=== PATIENT | female | born 1945 | race Caucasian/White ===

== ENCOUNTER 2016-06-07 08:45 | Outpatient (CLI) | payer MEDICARE | END 2016-06-07 08:46 | disposition home or self-care (01) | DX: R55 Syncope and collapse (principal); E04.1 Nontoxic single thyroid nodule; I10 Essential (primary) hypertension; R39.15 Urgency of urination ==

== ENCOUNTER 2016-06-27 10:11 | Outpatient (CLI) | payer MEDICARE | END 2016-06-27 10:12 | disposition home or self-care (01) | DX: Z12.31 Encounter for screening mammogram for malignant neoplasm of breast (principal) ==

== ENCOUNTER 2017-05-10 08:00 | Outpatient (CLI) | payer MEDICARE ==
[2017-05-10 12:53] LABS: ALBUMIN 4.2 g/dL (3.2-5.5); ALBUMIN/GLOBULIN RATIO 1.7 (1.0-2.2); ALKALINE PHOSPHATASE 52 IU/L (42-121); ALT ALANINE AMINOTRANSFERASE 15 IU/L (10-60); AST ASPARTATE AMINOTRANSFERASE 19 IU/L (10-42); BILIRUBIN,TOTAL 0.9 mg/dL (0.2-1.0); BUN - BLOOD UREA NITROGEN 14 mg/dL (6-20); CALCIUM 8.9 mg/dL (8.5-10.3); CARBON DIOXIDE - CO2 26 mmol/L (21-32); CHLORIDE 97 mmol/L (101-111); CHOL/HDL RATIO 2.8 (<4.4); CHOLESTEROL 169 mg/dL; CREATININE 0.6 mg/dL (0.4-1.0); GFR - MDRD 98 (>89); GLUCOSE 106 mg/dL (70-100); HDL CHOLESTEROL 61 mg/dL; LDL CHOLESTEROL,CALCULATED 96 mg/dL; LDL/HDL RATIO 1.6 (<4.4); SODIUM 132 mmol/L (135-145); TOTAL PROTEIN 6.7 g/dL (6.7-8.2); VLDL CHOLESTEROL 12 mg/dL
[2017-05-10 12:55] LABS: HB2 TOTAL 14.2 g/dL; HEMOGLOBIN A1C 0.57 g/dL; HEMOGLOBIN A1C % 5.8 % (4.6-6.2)
[2017-05-10 13:03] LABS: THYROID STIMULATING HORMONE 1.8 uIU/mL (0.34-5.60)
[2017-05-10 13:07] LABS: FREE T4 (FREE THYROXINE) 1.04 ng/dL (0.58-1.64)
[2017-05-10 13:08] LABS: BASOPHILS % (AUTO) 0.6 %; EOSINOPHILS # (AUTO) 0.1 10^3/uL (0.0-0.7); EOSINOPHILS % (AUTO) 1.5 %; HGB - HEMOGLOBIN 13.2 g/dL (12.0-16.0); LYMPHOCYTES # (AUTO) 1.1 10^3/uL (1.5-3.5); LYMPHOCYTES % (AUTO) 28.6 %; MEAN CORPUSCULAR HEMOGLOBIN 30.5 pg (27.0-31.0); MEAN CORPUSCULAR HGB CONC 34.6 g/dL (32.0-36.0); MEAN CORPUSCULAR VOLUME 87.9 fL (81.0-99.0); MEAN PLATELET VOLUME 7.4 fL (7.9-10.8); MONOCYTES # (AUTO) 0.3 10^3/uL (0.0-1.0); MONOCYTES % (AUTO) 9.1 %; NEUTROPHILS # (AUTO) 2.3 10^3/uL (1.5-6.6); NEUTROPHILS % (AUTO) 60.2 %; PLT - PLATELET COUNT 262 10^3/uL (130-450); RED BLOOD COUNT 4.34 10^6/uL (4.20-5.40); RED CELL DISTRIBUTION WIDTH 13.1 % (12.0-15.0); WHITE BLOOD COUNT 3.8 x10^3/uL (4.8-10.8)
[2017-05-11 09:15] LABS: HEPATITIS C ANTIBODY NON-REACTIVE (NON-REACTIVE)
== END 2017-05-10 08:01 ==
LOC: LAB.WCP 08:00
PROVIDERS: ATTEND Physician Assistant Medical
DX: R73.9 Hyperglycemia, unspecified (principal); I10 Essential (primary) hypertension; M85.80 Other specified disorders of bone density and structure, unspecified site; E04.1 Nontoxic single thyroid nodule; K21.9 Gastro-esophageal reflux disease without esophagitis; Z11.59 Encounter for screening for other viral diseases
CPT/HCPCS: 36415; 80053; 80061; 82306; 83036; 83721; 83735; 84439; 84443; 84481; 85025; 86803

== ENCOUNTER 2017-05-28 13:09 | Outpatient (CLI) | payer MEDICARE ==
[2017-05-28] MEDS ORDERED: ALBUTEROL NEB 2.5 MG/3 ML INH ONE (15:00)
== END 2017-05-28 13:10 | disposition home or self-care (01) ==
LOC: RT 13:09
PROVIDERS: ATTEND Physician Assistant Medical
DX: R06.00 Dyspnea, unspecified (principal)
CPT/HCPCS: 94060; 94729

== ENCOUNTER 2017-07-13 08:00 | Outpatient (CLI) | payer MEDICARE ==
[2017-07-13 12:57] LABS: CREATININE 0.7 mg/dL (0.4-1.0)
== END 2017-07-13 08:01 ==
LOC: LAB.WCP 08:00
PROVIDERS: ATTEND Physician Assistant Medical
DX: R06.09 Other forms of dyspnea (principal)
CPT/HCPCS: 36415; 80048

== ENCOUNTER 2017-07-27 13:25 | Outpatient (CLI) | payer MEDICARE ==
--- NOTE | 2017-07-27 16:51 | Mammography Report ---
DIGITAL DIAGNOSTIC BILATERAL MAMMOGRAM: 07/27/2017 CLINICAL INDICATION: Localized tenderness right upper outer quadrant. TECHNIQUE: Bilateral CC and MLO views, right true lateral view. Markers were placed at the site of maximal tenderness identified by the patient. The patient could not identify a palpable abnormality on the day of the examination. COMPARISON: 06/27/2016, 05/19/2015, 04/03/2014, 03/04/2014, 02/28/2013, 10/21/2011, 10/26/2010, 10/16/2009. FINDINGS: The breasts again demonstrate scattered fibroglandular densities bilaterally. Coarse, typically benign calcifications are stable. No mammographic abnormality is appreciated in the right upper outer quadrant, at the site indicated by the markers. IMPRESSION: BENIGN FINDINGS. RECOMMENDATION: Routine annual screening unless otherwise clinically indicated. BIRADS category 2 benign findings. STANDARD QUALIFYING STATEMENTS 1. This examination was reviewed with the aid of Computed-Aided Detection (CAD). 2. A negative or benign imaging report should not delay biopsy if clinically suspicious findings are present. Consider surgical consultation if warranted. More than 5% of cancers are not identified by imaging. 3. Dense breasts may obscure an underlying neoplasm. TD: 07/27/2017 15:00
== END 2017-07-27 13:26 | disposition home or self-care (01) ==
LOC: DI 13:25
PROVIDERS: ATTEND Physician Assistant Medical
DX: N63.0 Unspecified lump in unspecified breast (principal)
CPT/HCPCS: 77066

== ENCOUNTER 2018-01-01 10:18 | Outpatient (CLI) | payer MEDICARE ==
[2018-01-01 19:01] LABS: CALCIUM 9.3 mg/dL (8.5-10.3); CREATININE 0.6 mg/dL (0.4-1.0); URIC ACID 4.2 mg/dL (2.6-7.2)
== END 2018-01-01 23:59 | disposition home or self-care (01) ==
LOC: LAB.WCP 10:18
PROVIDERS: ATTEND Physician Assistant Medical
DX: I10 Essential (primary) hypertension (principal); M25.562 Pain in left knee
CPT/HCPCS: 36415; 80048; 84550; 85651

== ENCOUNTER 2018-05-28 08:00 | Outpatient (CLI) | payer MEDICARE ==
[2018-05-28 13:16] LABS: BASOPHILS % (AUTO) 0.7 %; EOSINOPHILS # (AUTO) 0.1 10^3/uL (0.0-0.7); EOSINOPHILS % (AUTO) 1.3 %; HGB - HEMOGLOBIN 13.4 g/dL (12.0-16.0); LYMPHOCYTES # (AUTO) 1.1 10^3/uL (1.5-3.5); LYMPHOCYTES % (AUTO) 21.5 %; MEAN CORPUSCULAR HEMOGLOBIN 30.9 pg (27.0-31.0); MEAN CORPUSCULAR HGB CONC 35.3 g/dL (32.0-36.0); MEAN CORPUSCULAR VOLUME 87.6 fL (81.0-99.0); MEAN PLATELET VOLUME 7.7 fL (7.9-10.8); MONOCYTES # (AUTO) 0.3 10^3/uL (0.0-1.0); MONOCYTES % (AUTO) 6.7 %; NEUTROPHILS # (AUTO) 3.5 10^3/uL (1.5-6.6); NEUTROPHILS % (AUTO) 69.8 %; PLT - PLATELET COUNT 321 10^3/uL (130-450); RED BLOOD COUNT 4.32 10^6/uL (4.20-5.40)
[2018-05-28 13:25] LABS: ALBUMIN 4.4 g/dL (3.2-5.5); ALBUMIN/GLOBULIN RATIO 1.4 (1.0-2.2); ALKALINE PHOSPHATASE 60 IU/L (42-121); ALT ALANINE AMINOTRANSFERASE 16 IU/L (10-60); AST ASPARTATE AMINOTRANSFERASE 21 IU/L (10-42); BILIRUBIN,TOTAL 0.9 mg/dL (0.2-1.0); BUN - BLOOD UREA NITROGEN 16 mg/dL (6-20); CALCIUM 9.6 mg/dL (8.5-10.3); CARBON DIOXIDE - CO2 28 mmol/L (21-32); CHLORIDE 92 mmol/L (101-111); CHOL/HDL RATIO 2.7 (<4.4); CHOLESTEROL 178 mg/dL; CREATININE 0.7 mg/dL (0.4-1.0); GFR - MDRD 82 (>89); GLUCOSE 110 mg/dL (70-100); HDL CHOLESTEROL 67 mg/dL; LDL CHOLESTEROL,CALCULATED 96 mg/dL; LDL/HDL RATIO 1.4 (<4.4); SODIUM 130 mmol/L (135-145); TOTAL PROTEIN 7.5 g/dL (6.7-8.2); VLDL CHOLESTEROL 15 mg/dL
[2018-05-28 13:34] LABS: THYROID STIMULATING HORMONE 1.6 uIU/mL (0.34-5.60)
[2018-05-28 13:35] LABS: FREE T4 (FREE THYROXINE) 0.98 ng/dL (0.58-1.64)
[2018-05-28 13:45] LABS: HB2 TOTAL 14.4 g/dL; HEMOGLOBIN A1C 0.59 g/dL; HEMOGLOBIN A1C % 5.9 % (4.6-6.2)
== END 2018-05-28 23:59 | disposition home or self-care (01) ==
LOC: LAB.WCP 08:00
PROVIDERS: ATTEND Physician Assistant Medical
DX: R73.9 Hyperglycemia, unspecified (principal); I10 Essential (primary) hypertension; R20.9 Unspecified disturbances of skin sensation; E04.1 Nontoxic single thyroid nodule; K21.9 Gastro-esophageal reflux disease without esophagitis
CPT/HCPCS: 36415; 80053; 80061; 82607; 83036; 83721; 84439; 84443; 84481; 85025

== ENCOUNTER 2018-05-28 11:17 | Outpatient (CLI) | payer MEDICARE ==
--- NOTE | 2018-05-28 16:31 | XRAY Report ---
Reason: TMJ DERANGEMENT Procedure Date: 05/28/2018 Accession Number: [id number] / [id number] Procedure: XR - Mandible Bilat CPT Code: FULL RESULT: EXAM: MANDIBLE RADIOGRAPHY EXAM DATE: 05/28/2018 12:10 PM. HISTORY: TMJ derangement. COMPARISONS: None. TECHNIQUE: 4 views. FINDINGS: Bones: Normal. No fractures or bone lesions. Temporomandibular Joints: Normal. The temporomandibular joints are normally located and symmetric. Sinuses: Normal. No opacities or fluid levels. Other: Normal. No soft tissue swelling. IMPRESSION: No specific plain film abnormalities demonstrated. If there is persistent clinical concern of internal derangement, consider TMJ MRI. RADIA
== END 2018-05-28 11:18 | disposition home or self-care (01) ==
LOC: DI 11:17
PROVIDERS: ATTEND Physician Assistant Medical
DX: M26.69 Other specified disorders of temporomandibular joint (principal); R73.9 Hyperglycemia, unspecified; I10 Essential (primary) hypertension; R20.9 Unspecified disturbances of skin sensation; E04.1 Nontoxic single thyroid nodule
CPT/HCPCS: 36415; 70110; 80053; 80061; 82607; 83036; 83721; 84439; 84443; 84481; 85025

== ENCOUNTER 2018-11-19 10:07 | Outpatient (CLI) | payer MEDICARE ==
[2018-11-19 13:57] LABS: ALBUMIN 4.2 g/dL (3.2-5.5); ALBUMIN/GLOBULIN RATIO 1.4 (1.0-2.2); BILIRUBIN,TOTAL 0.9 mg/dL (0.2-1.0); CALCIUM 9.2 mg/dL (8.5-10.3); CREATININE 0.6 mg/dL (0.4-1.0); TOTAL PROTEIN 7.2 g/dL (6.7-8.2)
== END 2018-11-19 23:59 | disposition home or self-care (01) ==
LOC: LAB.WCP 10:07
PROVIDERS: ATTEND Physician Assistant Medical
DX: R60.9 Edema, unspecified (principal)
CPT/HCPCS: 36415; 80053

== ENCOUNTER 2018-12-20 08:57 | Outpatient (CLI) | payer MEDICARE ==
--- NOTE | 2018-12-20 10:52 | Mammography Report ---
Reason: MASTALGIA Procedure Date: 12/20/2018 Accession Number: [id number] / [id number] Procedure: FELIPA - Diagnostic Dig Bilat CPT Code: FULL RESULT: EXAM: Diagnostic Dig Bilat DATE: 12/20/2018 9:34 AM CLINICAL HISTORY: Diffuse lateral right breast pain TECHNIQUE: (B) - Bilateral CC and MLO views were obtained. COMPARISON: 07/27/2017, 06/27/2016, 05/19/2015, 04/03/2014, 03/04/2014, 02/28/2013, 10/21/2011 and 10/26/2010 PARENCHYMAL PATTERN: (A) - The breasts demonstrate scattered fibroglandular densities bilaterally. FINDINGS: No significant interval change. There are no suspicious masses, calcifications, or areas of distortion. IMPRESSION: Negative examination. BI-RADS category 1. RECOMMENDATION: (ANNUAL) - Recommend routine annual screening mammography. BI-RADS CATEGORY: (1) - Negative. STANDARD QUALIFYING STATEMENTS: 1. This examination was not reviewed with the aid of Computer-Aided Detection (CAD). 2. A negative or benign imaging report should not preclude biopsy if clinically suspicious findings are present. 3. Dense breasts may obscure an underlying neoplasm. 4. This examination was reviewed with the aid of 3D breast imaging (tomosynthesis).
== END 2018-12-20 08:58 | disposition home or self-care (01) ==
LOC: DI 08:57
PROVIDERS: ATTEND Physician Assistant Medical
DX: N64.4 Mastodynia (principal)
CPT/HCPCS: 77066

== ENCOUNTER 2019-04-19 09:38 | Outpatient (CLI) | payer MEDICARE ==
[2019-04-19 13:25] LABS: BASOPHILS % (AUTO) 0.6 %; EOSINOPHILS % (AUTO) 0.6 %; HGB - HEMOGLOBIN 12.6 g/dL (12.0-16.0); LYMPHOCYTES # (AUTO) 0.8 10^3/uL (1.5-3.5); LYMPHOCYTES % (AUTO) 23.6 %; MEAN CORPUSCULAR HEMOGLOBIN 30.9 pg (27.0-31.0); MEAN CORPUSCULAR HGB CONC 35.3 g/dL (32.0-36.0); MEAN CORPUSCULAR VOLUME 87.5 fL (81.0-99.0); MEAN PLATELET VOLUME 9.2 fL (7.9-10.8); MONOCYTES # (AUTO) 0.3 10^3/uL (0.0-1.0); MONOCYTES % (AUTO) 9.7 %; NEUTROPHILS # (AUTO) 2.3 10^3/uL (1.5-6.6); NEUTROPHILS % (AUTO) 65.2 %; PLT - PLATELET COUNT 297 10^3/uL (130-450); RED BLOOD COUNT 4.08 10^6/uL (4.20-5.40); RED CELL DISTRIBUTION WIDTH 12.3 % (12.0-15.0); WHITE BLOOD COUNT 3.5 x10^3/uL (4.8-10.8)
[2019-04-19 13:42] LABS: ALBUMIN 4.2 g/dL (3.2-5.5); ALBUMIN/GLOBULIN RATIO 1.8 (1.0-2.2); ALKALINE PHOSPHATASE 49 IU/L (42-121); ALT ALANINE AMINOTRANSFERASE 17 IU/L (10-60); AST ASPARTATE AMINOTRANSFERASE 20 IU/L (10-42); BILIRUBIN,TOTAL 1.1 mg/dL (0.2-1.0); BUN - BLOOD UREA NITROGEN 15 mg/dL (6-20); CARBON DIOXIDE - CO2 29 mmol/L (21-32); CHLORIDE 90 mmol/L (101-111); CHOL/HDL RATIO 2.4 (<4.4); CHOLESTEROL 159 mg/dL; CREATININE 0.7 mg/dL (0.4-1.0); GFR - MDRD 81 (>89); GLUCOSE 109 mg/dL (70-100); HDL CHOLESTEROL 65 mg/dL; LDL CHOLESTEROL,CALCULATED 84 mg/dL; LDL/HDL RATIO 1.3 (<4.4); SODIUM 129 mmol/L (135-145); TOTAL PROTEIN 6.6 g/dL (6.7-8.2); VLDL CHOLESTEROL 10 mg/dL
[2019-04-19 13:54] LABS: HB2 TOTAL 13.2 g/dL; HEMOGLOBIN A1C 0.55 g/dL
[2019-04-19 14:07] LABS: THYROID STIMULATING HORMONE 1.47 uIU/mL (0.34-5.60)
[2019-04-19 14:09] LABS: FREE T4 (FREE THYROXINE) 1.1 ng/dL (0.58-1.64)
== END 2019-04-19 23:59 | disposition home or self-care (01) ==
LOC: LAB.WCP 09:38
PROVIDERS: ATTEND Physician Assistant Medical
DX: I10 Essential (primary) hypertension (principal); R73.9 Hyperglycemia, unspecified; E04.1 Nontoxic single thyroid nodule
CPT/HCPCS: 36415; 80053; 80061; 83036; 83721; 84439; 84443; 84481; 85025

== ENCOUNTER 2019-05-10 09:58 | Outpatient (CLI) | payer MEDICARE ==
--- NOTE | 2019-05-10 16:45 | DEXA Report ---
Reason: OSTEOPENIA Procedure Date: 05/10/2019 Accession Number: [id number] / [id number] Procedure: DEX - Dexa Spine and/or Hip CPT Code: Final Report FULL RESULT: EXAM: Dexa Spine and/or Hip DATE: 05/10/2019 10:38 AM CLINICAL HISTORY: OSTEOPENIA TECHNIQUE: Dual energy x-ray absorptiometry (DXA) was performed on a [employer] System. Regions measured are the AP Spine, femoral neck, and if needed forearm. COMPARISON: None. In accordance with the International Society for Clinical Densitometry (ISCD) guidelines, data from previous exams may be reanalyzed using current recommendations and techniques. This is done to allow a more accurate basis for comparison with the current study. FINDINGS: The data for the lumbar spine is as follows: BMD (g/cm/cm) T-SCORE Z-SCORE REGION L1 1.042 -0.7 0.1 L2 1.066 -1.1 -0.3 L3 1.172 -0.2 0.6 L4 0.970 -1.9 -1.1 TOTAL 1.058 -1.0 -0.2 NOTE: All evaluable vertebrae are used for classification The data for the hip is as follows: BMD (g/cm/cm) T-SCORE Z-SCORE REGION Neck 0.741 -2.1 -0.8 TOTAL 0.906 -0.8 0.3 NOTE: The femoral neck or total proximal femur, whichever is lowest, is used for classification. IMPRESSION: THE WHO CLASSIFICATION BASED ON THE INTERNATIONAL REFERENCE STANDARD IS OSTEOPENIA. THE FRACTURE RISK IS INCREASED. RECOMMENDATION: Patients with diagnosis of osteoporosis or osteopenia should have regular bone mineral density assessment. For those eligible for Medicare, routine testing is allowed once every 2 years. Testing frequency can be increased for patients who have rapidly progressing disease or for those who are receiving medical therapy to restore bone mass. COMMENT: World Health Organization (WHO) definitions for osteoporosis and osteopenia: NORMAL BMD: T-score at -1.0 or higher, fracture risk is low OSTEOPENIA BMD: T-score between -1.0 and -2.5, fracture risk is increased. OSTEOPOROSIS BMD: T-score at -2.5 or lower, fracture risk is high. National Osteoporosis Foundation recommends: 1. Obtain adequate dietary calcium (at least 1200 mg per day) and vitamin D (400-800 international units per day). 2. Participate, as appropriate, in regular weightbearing and muscle-strengthening exercise. 3. Avoid tobacco use and reduce alcohol and caffeine intake. 4. For more detailed information see the website at www.NOF.org.
== END 2019-05-10 09:59 | disposition home or self-care (01) ==
LOC: DI 09:58
PROVIDERS: ATTEND Physician Assistant Medical
DX: M85.89 Other specified disorders of bone density and structure, multiple sites (principal)
CPT/HCPCS: 77080

== ENCOUNTER 2019-10-12 13:17 | Emergency (ER) | payer MEDICARE ==
[2019-10-12] MEDS ORDERED: SODIUM CHLORIDE 0.9% 1,000 ML IV STA (13:34)
--- NOTE | 2019-10-12 13:40 | ED Physician Documentation ---
History of Present Illness - Stated complaint Stated Complaint: GENERAL MALAISE - Chief complaint Chief Complaint: Cardiac - History obtained from History obtained from: Patient, Family - History of Present Illness Timing: Today Pain level max: 0 Pain level now: 0 - Additonal information Additional information: 74-year-old female was at the [place] [employer] [place] today when she felt lightheaded dizzy and near syncopal. Nothing made it better or worse. She states that this has occurred in the past as well. No chest pain. No shortness of breath. No vomiting. No diarrhea. No abdominal pain. No urinary symptoms. No fall. No head injury. No neck or back pain. Review of Systems Ten Systems: 10 systems reviewed and negative Constitutional: denies: Fever, Chills Ears: denies: Ear pain Nose: denies: Rhinorrhea / runny nose, Congestion Respiratory: denies: Cough GI: denies: Nausea, Vomiting, Diarrhea PD PAST MEDICAL HISTORY - Past Medical History Cardiovascular: Hypertension Endocrine/Autoimmune: Type 2 diabetes Musculoskeletal: Osteoarthritis - Present Medications Home Medications: Ambulatory Orders Medication Instructions Recorded Confirmed Hydrochlorothiazide 25 mg PO DAILY 09/10/12 10/12/19 Losartan [Cozaar] 100 mg PO DAILY 09/10/12 10/12/19 - Allergies Allergies/Adverse Reactions: Allergies Allergy/AdvReac Type Severity Reaction Status Date / Time niacin Allergy Unknown unknown Verified 10/12/19 14:13 SOFIE Inhibitors Allergy Unknown Verified 10/12/19 15:59 aminobenzoic acid Allergy Unknown Verified 10/12/19 15:59 Beta-Blockers Allergy Unknown Verified 10/12/19 15:59 (Beta-Adrenergic Bloc peanut Allergy Unknown Verified 10/12/19 14:13 Penicillins Allergy Unknown Verified 10/12/19 15:59 Quinolones Allergy Unknown Verified 10/12/19 15:59 PD ED PE NORMAL - Vitals Vital signs reviewed: Yes - General General: Alert and oriented X 3, No acute distress, Well developed/nourished - HEENT HEENT: PERRL, Moist mucous membranes, Pharynx benign - Neck Neck: Supple, no meningeal sign - Cardiac Cardiac: RRR - Respiratory Respiratory: No respiratory distress, Clear bilaterally - Abdomen Abdomen: Soft, Non tender, Non distended - Derm Derm: Warm and dry - Extremities Extremities: No calf tenderness / cord, Other (1+ bilateral lower extremity pitting edema) - Neuro Neuro: Alert and oriented X 3, crester 2-12 intact, No motor deficit, No sensory deficit, Normal speech Eye Opening: Spontaneous Motor: Obeys Commands Verbal: Oriented GCS Score: 15 Results - Vitals Vitals: Vital Signs - 24 hr 10/12/19 10/12/19 10/12/19 13:39 14:00 15:00 Temperature 36.8 C Heart Rate 81 67 70 Respiratory 17 17 17 Rate Blood Pressure 134/68 H 148/48 H O2 Saturation 99 100 100 10/12/19 15:41 Temperature Heart Rate 67 Respiratory 20 Rate Blood Pressure 99/85 H O2 Saturation 96 Oxygen O2 Source Room air - EKG (time done) 1336 Rate: Rate (enter#) (66) Rhythm: NSR [place]: Normal Intervals: Normal ID QRS: Normal Ischemia: Normal ST segments - Labs Labs: Laboratory Tests 10/12/19 10/12/19 10/12/19 14:10 14:10 14:10 WBC 5.5 RBC 4.10 L Hgb 12.7 Hct 35.7 L MCV 87.1 MCH 31.0 MCHC 35.6 RDW 12.3 Plt Count 308 MPV 8.8 Neut # (Auto) 4.3 Lymph # (Auto) 0.7 L [place] # (Auto) 0.4 Eos # (Auto) 0.0 Baso # (Auto) 0.0 Absolute Nucleated RBC 0.00 Nucleated RBC % 0.0 Sodium 130 L Potassium 3.3 L Chloride 92 L Carbon Dioxide 23 Anion Gap 15.0 H BUN 15 Creatinine 0.9 Estimated GFR (MDRD) 61 L Glucose 174 H Calcium 9.2 Total Bilirubin 1.0 AST 18 ALT 16 Alkaline Phosphatase 71 Troponin I High Sens 4.4 Total Protein 6.6 L Albumin 4.1 Globulin 2.5 Albumin/Globulin Ratio 1.6 Lipase 34 Urine Color Urine Clarity Urine pH Ur Specific [place] Urine Protein Urine Glucose (UA) Urine Ketones Urine Occult Blood Urine Nitrite Urine Bilirubin Urine Urobilinogen Ur Leukocyte Esterase Ur Microscopic Review Urine Culture Comments 10/12/19 15:15 WBC RBC Hgb Hct MCV MCH MCHC RDW Plt Count MPV Neut # (Auto) Lymph # (Auto) [place] # (Auto) Eos # (Auto) Baso # (Auto) Absolute Nucleated RBC Nucleated RBC % Sodium Potassium Chloride Carbon Dioxide Anion Gap BUN Creatinine Estimated GFR (MDRD) Glucose Calcium Total Bilirubin AST ALT Alkaline Phosphatase Troponin I High Sens Total Protein Albumin Globulin Albumin/Globulin Ratio Lipase Urine Color YELLOW Urine Clarity CLEAR Urine pH 8.0 H Ur Specific [place] 1.015 Urine Protein NEGATIVE Urine Glucose (UA) NEGATIVE Urine Ketones NEGATIVE Urine Occult Blood NEGATIVE Urine Nitrite NEGATIVE Urine Bilirubin NEGATIVE Urine Urobilinogen 0.2 (NORMAL) Ur Leukocyte Esterase NEGATIVE Ur Microscopic Review NOT INDICATED Urine Culture Comments NOT INDICATED - Rads (name of study) cxr Radiology: Prelim report reviewed, EMP read contemporaneously, See rad report (no acute disease) PD MEDICAL DECISION MAKING - ED course Complexity details: reviewed results, re-evaluated patient, considered differential (No ST elevation VT, no aortic dissection, no PE, no tension pneumothorax, no aortic aneurysm), d/w patient, d/w family ED course: No arrhythmias on telemetry. No significant lab abnormalities. Feels better after IV fluids. Likely dehydration combined with sun exposure and heat. We will have the patient follow-up with her doctor for further care. She is on hydrochlorothiazide for peripheral edema as well as blood pressure. This is likely contributing as well. We will have her discuss this with her doctor. Patient counseled regarding signs and symptoms for which I believe and urgent re-evaluation would be necessary. Patient with good understanding of and agreement to plan and is comfortable going home at this time This document was made in part using voice recognition software. While efforts are made to proofread this document, sound alike and grammatical errors may occur. Departure - Departure Disposition: 01 Home, Self Care Clinical Impression: Near syncope, Dehydration Condition: Good Instructions: ED Dehydration, ED Near Syncope Vasovagal Follow-Up: Amaris Briseno PA-C [Primary Care Provider] - Within 1 week Comments: Follow-up with your doctor for further care. There are no significant changes to your labs from your baseline. Continue your current medications, return if you worsen. Discharge Date/Time: 10/12/19 16:00
--- NOTE | 2019-10-12 13:55 | XRAY Report ---
PROCEDURE: Chest 1 View X-Ray INDICATIONS: Chest Pain TECHNIQUE: One view of the chest was acquired. COMPARISON: 08/07/2015 FINDINGS: Surgical changes and devices: None. Lungs and pleura: No pleural effusions or pneumothorax. Lungs are clear. Mediastinum: The aorta is prominent and tortuous. The cardiac contours are within normal limits. Bones and chest wall: No suspicious bony lesions. Age-appropriate degenerative changes are seen. Overlying soft tissues appear unremarkable. IMPRESSION: Unremarkable portable chest for age. Reviewed by: Ceasar Miranda MD on 10/12/2019 12:54 PM AKDT Approved by: Ceasar Miranda MD on 10/12/2019 12:54 PM AKDT Station ID: [id number]
[2019-10-12 14:35] LABS: BASOPHILS % (AUTO) 0.7 %; EOSINOPHILS % (AUTO) 0.2 %; HGB - HEMOGLOBIN 12.7 g/dL (12.0-16.0); LYMPHOCYTES # (AUTO) 0.7 10^3/uL (1.5-3.5); LYMPHOCYTES % (AUTO) 13.1 %; MEAN CORPUSCULAR HGB CONC 35.6 g/dL (32.0-36.0); MEAN CORPUSCULAR VOLUME 87.1 fL (81.0-99.0); MEAN PLATELET VOLUME 8.8 fL (7.9-10.8); MONOCYTES # (AUTO) 0.4 10^3/uL (0.0-1.0); MONOCYTES % (AUTO) 7.7 %; NEUTROPHILS # (AUTO) 4.3 10^3/uL (1.5-6.6); NEUTROPHILS % (AUTO) 77.9 %; PLT - PLATELET COUNT 308 10^3/uL (130-450); RED CELL DISTRIBUTION WIDTH 12.3 % (12.0-15.0); WHITE BLOOD COUNT 5.5 x10^3/uL (4.8-10.8)
[2019-10-12 14:47] LABS: ALBUMIN 4.1 g/dL (3.2-5.5); ALBUMIN/GLOBULIN RATIO 1.6 (1.0-2.2); CALCIUM 9.2 mg/dL (8.5-10.3); CREATININE 0.9 mg/dL (0.4-1.0); TOTAL PROTEIN 6.6 g/dL (6.7-8.2)
[2019-10-12 15:22] LABS: BILIRUBIN,URINE NEGATIVE (NEGATIVE); GLUCOSE, URINE (UA) NEGATIVE (NEGATIVE); KETONES,URINE (UA) NEGATIVE (NEGATIVE); LEUKOCYTE ESTERASE, URINE NEGATIVE (NEGATIVE); NITRITE,URINE NEGATIVE (NEGATIVE); OCCULT BLOOD,URINE NEGATIVE (NEGATIVE); PROTEIN,URINE NEGATIVE (NEGATIVE); UROBILINOGEN,URINE 0.2 (NORMAL) E.U./dL (NORMAL)
[2019-10-12 15:24] LABS: CLARITY,URINE CLEAR (CLEAR)
[2019-10-12 15:42] VITALS: BP 99/85
== END 2019-10-12 16:00 | disposition home or self-care (01) ==
LOC: EDBD → EDUNIT# → ED 13:17
DX: E86.0 Dehydration (principal); R55 Syncope and collapse; R60.0 Localized edema; I10 Essential (primary) hypertension; E11.9 Type 2 diabetes mellitus without complications
CPT/HCPCS: 36415; 71045; 80053; 81001; 81003; 83690; 84484; 85025; 87086; 93005; 96360; 99284

== ENCOUNTER 2019-10-14 11:49 | Outpatient (CLI) | payer MEDICARE ==
[2019-10-14 18:31] LABS: BASOPHILS % (AUTO) 0.5 %; EOSINOPHILS % (AUTO) 0.5 %; HGB - HEMOGLOBIN 12.4 g/dL (12.0-16.0); LYMPHOCYTES # (AUTO) 0.9 10^3/uL (1.5-3.5); LYMPHOCYTES % (AUTO) 15.4 %; MEAN CORPUSCULAR HEMOGLOBIN 30.5 pg (27.0-31.0); MEAN CORPUSCULAR HGB CONC 34.2 g/dL (32.0-36.0); MEAN CORPUSCULAR VOLUME 89.4 fL (81.0-99.0); MONOCYTES # (AUTO) 0.4 10^3/uL (0.0-1.0); MONOCYTES % (AUTO) 7.3 %; NEUTROPHILS # (AUTO) 4.5 10^3/uL (1.5-6.6); PLT - PLATELET COUNT 313 10^3/uL (130-450); RED BLOOD COUNT 4.06 10^6/uL (4.20-5.40); RED CELL DISTRIBUTION WIDTH 12.8 % (12.0-15.0); WHITE BLOOD COUNT 5.9 x10^3/uL (4.8-10.8)
[2019-10-14 18:41] LABS: ALBUMIN 4.3 g/dL (3.2-5.5); ALBUMIN/GLOBULIN RATIO 1.7 (1.0-2.2); BILIRUBIN,TOTAL 0.7 mg/dL (0.2-1.0); CALCIUM 9.7 mg/dL (8.5-10.3); CREATININE 0.6 mg/dL (0.4-1.0); TOTAL PROTEIN 6.8 g/dL (6.7-8.2)
[2019-10-14 18:50] LABS: THYROID STIMULATING HORMONE 1.07 uIU/mL (0.34-5.60)
[2019-10-14 18:52] LABS: FREE T3 3.19 pg/mL (2.5-3.9); FREE T4 (FREE THYROXINE) 1.03 ng/dL (0.58-1.64)
== END 2019-10-14 23:59 | disposition home or self-care (01) ==
LOC: LAB.WCP 11:49
PROVIDERS: ATTEND Physician Assistant Medical
DX: R55 Syncope and collapse (principal); E04.1 Nontoxic single thyroid nodule; R60.9 Edema, unspecified
CPT/HCPCS: 36415; 80053; 82607; 84432; 84439; 84443; 84481; 85025; 86800

== ENCOUNTER 2019-11-14 09:47 | Outpatient (CLI) | payer MEDICARE ==
--- NOTE | 2019-11-14 12:53 | MRI Report ---
PROCEDURE: Brain W/O INDICATIONS: SYNCOPE AND COLLAPSE TECHNIQUE: Noncontrast axial T1 spin echo, axial T2 fast spin echo, sagittal and axial FLAIR, coronal T2 fast sp in echo, axial gradient echo, axial diffusion and ADC through the brain. Contrast was scheduled to b e given, yet the patient declined contrast administration. COMPARISON: None. FINDINGS: Image quality: Excellent. CSF Spaces: Basal cisterns are patent. No extra-axial fluid collections. Ventricles are normal in size and shape. Brain: No intracranial masses or hemorrhage. Zepeda/white matter interface is normal. Brainstem appe ars normal. Diffusion-weighted images demonstrate no acute ischemic insult. No chronic ischemic ins ults. Normal intravascular flow voids are present. Skull and face: Calvarium has normal marrow signal. Orbits appear normal. Sinuses: Sinuses and mastoids are clear. IMPRESSION: Unremarkable intracranial noncontrast study for age, without an imaging explanation found for the pat ient's presenting history. Age-appropriate brain parenchymal volume loss and chronic small vessel ischemic change can be seen. No findings of acute or subacute infarction are seen. Reviewed by: Ceasar Miranda MD on 11/14/2019 11:52 AM AKIKO Approved by: Ceasar Miranda MD on 11/14/2019 11:52 AM AKIKO Station ID: [id number]
== END 2019-11-14 09:48 | disposition home or self-care (01) ==
LOC: DI 09:47
PROVIDERS: ATTEND Physician Assistant Medical
DX: R55 Syncope and collapse (principal); R56.9 Unspecified convulsions
CPT/HCPCS: 70551

== ENCOUNTER 2019-11-19 11:39 | Outpatient (CLI) | payer MEDICARE ==
--- NOTE | 2019-11-19 14:40 | XRAY Report ---
PROCEDURE: Lumbar Spine 2 View INDICATIONS: SOMATIC DYSFUNCITON,LUMBAR, OF PELVIC REGION TECHNIQUE: 2 views of the lumbar spine were acquired. COMPARISON: 04/27/2015. FINDINGS: Bones: 5 [id number] vertebrae are present. There is stable bony alignment with mild extra curv ature of the mid lumbar spine. There are moderate degenerative changes of the imaged lumbar spine mos t prominent from L1 to through L3-4. This has progressed since the prior. Stable appearance of chroni c compression deformities of the thoracolumbar junction and upper lumbar spine. Prominent endplate os teophyte formation. No acute vertebral body compression fractures. No suspicious bony lesions. Soft tissues: Overlying bowel gas pattern is normal. No suspicious soft tissue calcifications. IMPRESSION: Lumbar spine without acute radiographic abnormalities. Progression of moderate multilevel lumbar spondylosis. Reviewed by: Rehan Cunha MD on 11/19/2019 2:38 PM PDT Approved by: Rehan Cunha MD on 11/19/2019 2:38 PM PDT Station ID: [id number]
--- NOTE | 2019-11-19 16:54 | XRAY Report ---
PROCEDURE: Hips 2V BILAT INDICATIONS: SOMATIC DYSFUNCITON,LUMBAR, OF PELVIC REGION TECHNIQUE: 4 views of the hip were acquired. COMPARISON: 04/27/2015 FINDINGS: Bones: No acute fractures or dislocations. Moderate degenerative changes of the bilateral femoroacet abular joints. Findings are more pronounced on the right as before. There is prominence of the right superolateral acetabular rim. No suspicious bony lesions. The visualized pelvic ring appears intact. Soft tissues: No suspicious soft tissue calcifications or masses. IMPRESSION: Bilateral hip without acute radiographic abnormalities. Bilateral hip osteoarthrosis more pronounced on the right. Reviewed by: Rehan Cunha MD on 11/19/2019 4:52 PM PDT Approved by: Rehan Cunha MD on 11/19/2019 4:52 PM PDT Station ID: [id number]
== END 2019-11-19 11:40 | disposition home or self-care (01) ==
LOC: DI 11:39
PROVIDERS: ATTEND Physician Assistant Medical
DX: M99.03 Segmental and somatic dysfunction of lumbar region (principal); M99.05 Segmental and somatic dysfunction of pelvic region; M47.816 Spondylosis without myelopathy or radiculopathy, lumbar region; M16.0 Bilateral primary osteoarthritis of hip
CPT/HCPCS: 72100; 73521

== ENCOUNTER 2020-02-25 12:46 | Outpatient (CLI) | payer MEDICARE ==
--- NOTE | 2020-02-25 14:33 | MRI Report ---
PROCEDURE: Brain W/O INDICATIONS: PARTIAL SYMPTOMATIC EPLLEPSY W/ COMPLEX SEIZURES TECHNIQUE: Noncontrast axial T1 spin echo, axial T2 fast spin echo, sagittal and axial FLAIR, coronal T2 fast sp in echo, axial gradient echo, axial diffusion and ADC through the brain. COMPARISON: Brain MRI dated 11/14/2019 FINDINGS: Image quality: Excellent. CSF Spaces: Basal cisterns are patent. No extra-axial fluid collections. Ventricles are normal in size and shape. Brain: No intracranial masses or hemorrhage. Mild diffuse cerebral volume loss. Mild degree of patc hy high FLAIR signal within the periventricular and subcortical white matter, consistent with small v essel ischemic disease. Zepeda/white matter interface is normal. Brainstem appears normal. Diffusion- weighted images demonstrate no acute ischemic insult. No chronic ischemic insults. Normal intravasc ular flow voids are present. Skull and face: Calvarium has normal marrow signal. Orbits appear normal. Sinuses: Small amount of left mastoid fluid. Right mastoids are clear. IMPRESSION: 1. Mild volume loss. Minimal small vessel ischemic disease. 2. No acute process. No recent infarct. 3. Small amount of left mastoid fluid. Reviewed by: Cher Woodard MD on 02/25/2020 2:32 PM PST Approved by: Cher Woodard MD on 02/25/2020 2:32 PM PST Station ID: [id number]
== END 2020-02-25 12:47 | disposition home or self-care (01) ==
LOC: DI 12:46
PROVIDERS: ATTEND Psychiatry & Neurology Vascular Neurology
DX: G40.209 Localization-related (focal) (partial) symptomatic epilepsy and epileptic syndromes with complex partial seizures, not intractable, without status epilepticus (principal)
CPT/HCPCS: 70551

== ENCOUNTER 2020-06-08 09:17 | Outpatient (CLI) | payer MEDICARE ==
--- NOTE | 2020-06-09 12:24 | Ultrasound Report ---
LIMITED ULTRASOUND OF RIGHT BREAST: 06/08/2020 CLINICAL: Palpable right breast lump. Focal right nipple pain. Comparison is made to exams dated: 06/08/2020 mammogram, 12/20/2018 mammogram, 07/27/2017 mammogram, mammogram, 05/19/2015 mammogram, and 04/03/2014 mammogram - [facility]. Color flow and real-time ultrasound of the right breast 11 o'clock, and retroareolar regions were per formed. Zepeda scale images of the real-time examination were reviewed. There is a benign 1 cm x 0.3 cm normal lymph node in the right breast at 11 o'clock middle depth 8 cm from the nipple. This correlates as palpated and with mammography findings. Color flow imaging dem onstrates that there is no vascularity present. There also is benign duct ectasia in the right breast central to the nipple in the retroareolar regio n. This correlates with mammography findings. Color flow imaging demonstrates that there is no vasc ularity present. IMPRESSION: BENIGN There is no sonographic evidence of malignancy. The 1 cm x 0.3 cm normal lymph node in the right breast at 11 o'clock middle depth accounts for palpa ble abnormality and is benign. The duct ectasia in the right breast central to the nipple in the retroareolar region is benign. Return to annual mammogram screening schedule is recommended. Findings and recommendations were conveyed to the patient at time of exam. This exam was interpreted at Station ID: [id number]. Electronically Signed By: Amy gooden/:06/08/2020 11:13:31 Ultrasound BI-RADS: 2 Benign BI-RADS CATEGORY: (2) - 2 RECOMMENDATION: (ANNUAL) - Recommend routine annual screening mammography. [id number] return to screening LATERALITY: (B)
--- NOTE | 2020-06-09 12:24 | Mammography Report ---
BILATERAL DIGITAL DIAGNOSTIC MAMMOGRAM 3D/2D: 06/08/2020 CLINICAL: Focal right breast pain. Comparison is made to exams dated: 12/20/2018 mammogram, 07/27/2017 mammogram, 06/27/2016 mammogram, an d 05/19/2015 mammogram - [facility]. There are scattered fibroglandular elements in both breasts. Near the area of palpable abnormality, there is a 9 mm oval equal density asymmetry with an indistinc t margin in the right breast at 11 o'clock middle depth. This is not significantly changed compared to previous years. There also is an oval asymmetry in the right breast sub-areolar depth central to the nipple seen on t he craniocaudal view only. No other significant masses, calcifications, or other findings are seen in either breast. IMPRESSION: INCOMPLETE: NEEDS ADDITIONAL IMAGING EVALUATION The 9 mm oval equal density asymmetry in the right breast at 11 o'clock middle depth most likely is f ibroglandular tissue or a lymph node but remains indeterminate. An ultrasound is recommended. This was performed immediately following this exam. The oval asymmetry in the right breast sub-areolar depth central to the nipple seen on the craniocaud al view only is indeterminate. An ultrasound is recommended. This was performed immediately followi ng this exam. This exam was interpreted at Station ID: [id number]. NOTE: For mammograms, a report in lay terms will be sent to the patient. Approximately 15% of breast malignancies will not be visualized mammographically. In the management of a palpable breast mass, a negative mammogram must not discourage biopsy of a clinically suspicious lesion. Electronically Signed By: Amy gooden/:06/08/2020 11:11:03 ACR BI-RADS Category 0: Incomplete 3340F PARENCHYMAL PATTERN: (A) - The breast(s) demonstrate(s) scattered fibroglandular densities. BI-RADS CATEGORY: (0) - 0 Ultrasound [id number] Immediate follow-up LATERALITY: (B)
== END 2020-06-08 09:18 | disposition home or self-care (01) ==
LOC: DI 09:17
PROVIDERS: ATTEND Physician Assistant Medical
DX: N64.4 Mastodynia (principal)

== ENCOUNTER 2020-07-16 08:00 | Outpatient (CLI) | payer MEDICARE ==
[2020-07-16 11:59] LABS: BASOPHILS % (AUTO) 0.8 %; HCT - HEMATOCRIT 37.7 % (37.0-47.0); HGB - HEMOGLOBIN 12.7 g/dL (12.0-16.0); LYMPHOCYTES # (AUTO) 0.9 10^3/uL (1.5-3.5); LYMPHOCYTES % (AUTO) 24.2 %; MEAN CORPUSCULAR HEMOGLOBIN 30.3 pg (27.0-31.0); MEAN CORPUSCULAR HGB CONC 33.7 g/dL (32.0-36.0); MEAN PLATELET VOLUME 9.3 fL (7.9-10.8); MONOCYTES # (AUTO) 0.3 10^3/uL (0.0-1.0); MONOCYTES % (AUTO) 8.6 %; NEUTROPHILS # (AUTO) 2.5 10^3/uL (1.5-6.6); NEUTROPHILS % (AUTO) 65.1 %; PLT - PLATELET COUNT 282 10^3/uL (130-450); RED BLOOD COUNT 4.19 10^6/uL (4.20-5.40); RED CELL DISTRIBUTION WIDTH 12.4 % (12.0-15.0); WHITE BLOOD COUNT 3.8 x10^3/uL (4.8-10.8)
[2020-07-16 12:15] LABS: ALBUMIN 4.5 g/dL (3.2-5.5); ALBUMIN/GLOBULIN RATIO 1.9 (1.0-2.2); BILIRUBIN,TOTAL 1.2 mg/dL (0.2-1.0); CALCIUM 9.1 mg/dL (8.5-10.3); CREATININE 0.8 mg/dL (0.4-1.0); POTASSIUM 3.8 mmol/L (3.5-5.0); TOTAL PROTEIN 6.9 g/dL (6.7-8.2)
[2020-07-16 12:35] LABS: THYROID STIMULATING HORMONE 1.54 uIU/mL (0.34-5.60)
[2020-07-16 12:37] LABS: ESTIMATED AVERAGE GLUCOSE 91 mg/dL (70-100); HEMOGLOBIN A1c% 4.8 % (4.27-6.07)
== END 2020-07-16 23:59 | disposition home or self-care (01) ==
LOC: LAB.WCP 08:00
PROVIDERS: ATTEND Physician Assistant Medical
DX: E04.1 Nontoxic single thyroid nodule (principal); R73.9 Hyperglycemia, unspecified; K21.9 Gastro-esophageal reflux disease without esophagitis
CPT/HCPCS: 36415; 80053; 83036; 84443; 85025

== ENCOUNTER 2020-07-23 12:31 | Outpatient (CLI) | payer MEDICARE ==
--- NOTE | 2020-07-23 16:40 | Ultrasound Report ---
PROCEDURE: Head or Neck Soft Tissue INDICATIONS: THYROID NODULE TECHNIQUE: Real-time scanning was performed of the thyroid gland, with image documentation. COMPARISON: Thyroid ultrasound 09/12/2013, 01/07/2015. FINDINGS: Right: Thyroid lobe measures 5.6 x 1.3 x 1.6 cm, and is homogeneous in echotexture. Left: Thyroid lobe measures 5.2 x 1.3 x 1.9 cm, and is homogenous in echotexture. Isthmus: 3 mm thick. Nodule number: One Location: Right lateral inferior Size: 0.8 x 0.4 x 0.6 cm compared to 0.7 x 0.3 x 0.5 cm. Composition: Solid Echogenicity: Hypoechoic Shape: wider than tall. Margins: Smooth Echogenic foci: None Total points: 4 ACR TI-RADS category: 4 Nodule number: Two Location: Right superior mid Size: 0.6 x 0.3 x 0.5 cm. Composition: Solid Echogenicity: Hypoechoic Shape: wider than tall. Margins: Smooth Echogenic foci: None Total points: 4 ACR TI-RADS category: 4 Nodule number: Three Location: Left mid medial Size: 1.6 x 1.0 x 1.3 cm compared to 1.1 x 0.7 x 0.9 cm. Composition: Solid Echogenicity: Isoechoic Shape: wider than tall. Margins: Smooth Echogenic foci: None Total points: 4 ACR TI-RADS category: 4 Nodule number: 4 Location: Left mid Size: 0.7 x 0.4 x 0.6 cm compared to 0.6 x 0.4 x 0.6 cm. Composition: Solid Echogenicity: Hypoechoic Shape: wider than tall. Margins: Smooth Echogenic foci: None Total points: 4 ACR TI-RADS category: 4 Nodule number: 5 Location: Left superior lateral Size: 0.6 x 0.3 x 0.5 cm compared to 0.3 x 0.2 x 0.3 cm. Composition: Solid Echogenicity: Hypoechoic Shape: wider than tall. Margins: Smooth Echogenic foci: None Total points: 4 ACR TI-RADS category: 4 IMPRESSION: 1. Lesions 1, 4 and 5 are stable compared to prior exam. They're considered category 4 as secondary t o size no additional follow-up is recommended. 2. Lesion 2 is new. However, secondary to size, no additional follow-up is recommended. 3. Lesion 3 demonstrates interval increase in size, now with recommendation for fine-needle aspiratio n. ACR TI-RADS definitions and recommendations: TI-RADS 1 (benign): 0 points. FNA not needed. TI-RADS 2 (not suspicious): 2 points. FNA not needed. TI-RADS 3 (mildly suspicious): 3 points. ? FNA if 2.5 cm or larger, follow up if 1.5 cm or larger (at 1, 3, and 5 years). TI-RADS 4 (moderately suspicious): 4-6 points. ? FNA if 1.5 cm or larger, follow up if 1 cm or larger (at 1, 2, 3, and 5 years). TI-RADS 5 (highly suspicious): 7 points or more. ? FNA if 1 cm or larger, follow up if 0.5 cm or larger (every year for 5 years). ACR TI-RADS definitions and recommendations: Reviewed by: Sujatha Flannery MD on 07/23/2020 4:39 PM PDT Approved by: Sujatha Flannery MD on 07/23/2020 4:39 PM PDT Station ID: [id number]
== END 2020-07-23 12:32 | disposition home or self-care (01) ==
LOC: DI 12:31
PROVIDERS: ATTEND Physician Assistant Medical
DX: E04.2 Nontoxic multinodular goiter (principal)

== ENCOUNTER 2020-08-20 13:37 | Outpatient (CLI) | payer MEDICARE ==
[~2020-08-20 13:37] MED LIST: BUFFERED LIDOCAINE 10 ML SYRINGE ONE
[2020-08-20] MEDS ORDERED: BUFFERED LIDOCAINE 10 ML SYRINGE IU ONE (15:31)
--- NOTE | 2020-08-20 15:35 | Ultrasound Report ---
PROCEDURE: FNA Bx w/US Gnd 1st les INDICATIONS: THYROID NODULE TECHNIQUE: Real-time imaging demonstrated a less distinct appearance of the previously identified static image i n the prior ultrasound exam. There was attempt to FNA the region of heterogeneous echogenicity. Howev er, secondary to location as well as patient's ability to tolerate positioning and breathing, success ful samples within the region of interest were unable to be obtained. IMPRESSION: Secondary to above, FNA was aborted. Continued ultrasound follow-up is recommended. If concern persis ts for potential malignancy, nuclear medicine scan may be of value for further evaluation. Reviewed by: Sujatha Flannery MD on 08/20/2020 3:34 PM PDT Approved by: Sujatha Flannery MD on 08/20/2020 3:34 PM PDT Station ID: [id number]
== END 2020-08-20 13:38 | disposition home or self-care (01) ==
LOC: DI 13:37
PROVIDERS: ATTEND Physician Assistant Medical
DX: E04.1 Nontoxic single thyroid nodule (principal)
CPT/HCPCS: 10005

== ENCOUNTER 2021-01-13 10:45 | Outpatient (CLI) | payer MEDICARE ==
[2021-01-13 18:27] LABS: BASOPHILS % (AUTO) 0.6 %; EOSINOPHILS # (AUTO) 0.1 10^3/uL (0.0-0.7); HCT - HEMATOCRIT 38.1 % (37.0-47.0); HGB - HEMOGLOBIN 12.8 g/dL (12.0-16.0); LYMPHOCYTES % (AUTO) 21.1 %; MEAN CORPUSCULAR HEMOGLOBIN 30.5 pg (27.0-31.0); MEAN CORPUSCULAR HGB CONC 33.6 g/dL (32.0-36.0); MEAN CORPUSCULAR VOLUME 90.9 fL (81.0-99.0); MEAN PLATELET VOLUME 9.2 fL (7.9-10.8); MONOCYTES # (AUTO) 0.4 10^3/uL (0.0-1.0); MONOCYTES % (AUTO) 7.9 %; NEUTROPHILS # (AUTO) 3.3 10^3/uL (1.5-6.6); NEUTROPHILS % (AUTO) 69.2 %; PLT - PLATELET COUNT 307 10^3/uL (130-450); RED BLOOD COUNT 4.19 10^6/uL (4.20-5.40); RED CELL DISTRIBUTION WIDTH 12.5 % (12.0-15.0); WHITE BLOOD COUNT 4.8 x10^3/uL (4.8-10.8)
[2021-01-13 18:31] LABS: BILIRUBIN,URINE NEGATIVE (NEGATIVE); GLUCOSE, URINE (UA) NEGATIVE (NEGATIVE); KETONES,URINE (UA) TRACE mg/dL (NEGATIVE); LEUKOCYTE ESTERASE, URINE NEGATIVE (NEGATIVE); NITRITE,URINE NEGATIVE (NEGATIVE); OCCULT BLOOD,URINE NEGATIVE (NEGATIVE); PH,URINE 5.5 PH (5.0-7.5); PROTEIN,URINE NEGATIVE (NEGATIVE); UROBILINOGEN,URINE 0.2 (NORMAL) E.U./dL (NORMAL)
[2021-01-13 18:39] LABS: AMORPHOUS SEDIMENT,UR Few /LPF; BACTERIA,URINE None Seen /HPF (None Seen); CLARITY,URINE HAZY (CLEAR); RBC,URINE None Seen /HPF (0-5); SQUAMOUS EPITHELIAL CELL,UR RARE Squamous (<= Few); WBC,URINE 0-3 /HPF (0-5)
[2021-01-13 18:40] LABS: CRYSTALS,URINE >50 Calcium Oxalate /LPF
[2021-01-13 18:52] LABS: ALBUMIN 4.8 g/dL (3.2-5.5); ALBUMIN/GLOBULIN RATIO 2.1 (1.0-2.2); ALKALINE PHOSPHATASE 54 IU/L (42-121); ALT ALANINE AMINOTRANSFERASE 16 IU/L (10-60); AST ASPARTATE AMINOTRANSFERASE 22 IU/L (10-42); BILIRUBIN,TOTAL 0.9 mg/dL (0.2-1.0); BUN - BLOOD UREA NITROGEN 16 mg/dL (6-20); CALCIUM 9.2 mg/dL (8.5-10.3); CARBON DIOXIDE - CO2 25 mmol/L (21-32); CHLORIDE 93 mmol/L (101-111); CHOL/HDL RATIO 2.3 (<4.4); CHOLESTEROL 189 mg/dL; CREATININE 0.6 mg/dL (0.4-1.0); GFR - MDRD 97 (>89); GLUCOSE 97 mg/dL (70-100); HDL CHOLESTEROL 84 mg/dL; LDL CHOLESTEROL,CALCULATED 95 mg/dL; LDL/HDL RATIO 1.1 (<4.4); POTASSIUM 3.9 mmol/L (3.5-5.0); SODIUM 129 mmol/L (135-145); TOTAL PROTEIN 7.1 g/dL (6.7-8.2); TRIGLYCERIDES 49 mg/dL; VLDL CHOLESTEROL 10 mg/dL
[2021-01-13 19:03] LABS: THYROID STIMULATING HORMONE 1.8 uIU/mL (0.34-5.60)
[2021-01-13 19:05] LABS: FREE T3 3.33 pg/mL (2.5-3.9); FREE T4 (FREE THYROXINE) 0.96 ng/dL (0.58-1.64)
[2021-01-13 21:14] LABS: ESTIMATED AVERAGE GLUCOSE 100 mg/dL (70-100); HEMOGLOBIN A1c% 5.1 % (4.27-6.07)
== END 2021-01-13 23:59 | disposition home or self-care (01) ==
LOC: LAB.WCP 10:45
PROVIDERS: ATTEND Physician Assistant Medical
DX: I10 Essential (primary) hypertension (principal); R73.9 Hyperglycemia, unspecified; R35.0 Frequency of micturition; E04.1 Nontoxic single thyroid nodule
CPT/HCPCS: 36415; 80053; 80061; 81001; 83036; 83721; 84439; 84443; 84481; 85025; 87086

== ENCOUNTER 2021-07-13 11:50 | Outpatient (CLI) | payer MEDICARE ==
[2021-07-13 17:49] LABS: ALBUMIN 4.4 g/dL (3.2-5.5); ALBUMIN/GLOBULIN RATIO 1.9 (1.0-2.2); BILIRUBIN,TOTAL 0.9 mg/dL (0.2-1.0); CALCIUM 9.2 mg/dL (8.5-10.3); CREATININE 0.7 mg/dL (0.4-1.0); POTASSIUM 4.4 mmol/L (3.5-5.0); TOTAL PROTEIN 6.7 g/dL (6.7-8.2)
[2021-07-13 18:08] LABS: THYROID STIMULATING HORMONE 1.35 uIU/mL (0.34-5.60)
[2021-07-13 18:10] LABS: FREE T3 2.62 pg/mL (2.5-3.9)
[2021-07-13 18:12] LABS: FREE T4 (FREE THYROXINE) 1.1 ng/dL (0.58-1.64)
[2021-07-13 20:48] LABS: ESTIMATED AVERAGE GLUCOSE 97 mg/dL (70-100)
== END 2021-07-13 11:51 | disposition home or self-care (01) ==
LOC: LAB.N 11:50
PROVIDERS: ATTEND Physician Assistant Medical
DX: R73.9 Hyperglycemia, unspecified (principal); E04.1 Nontoxic single thyroid nodule; M17.12 Unilateral primary osteoarthritis, left knee
CPT/HCPCS: 36415; 80053; 83036; 84439; 84443; 84481; 84550

== ENCOUNTER 2021-08-10 12:41 | Outpatient (CLI) | payer MEDICARE ==
--- NOTE | 2021-08-10 15:40 | DEXA Report ---
PROCEDURE: Dexa Spine and/or Hip INDICATIONS: POST MENOPAUSAL TECHNIQUE: Dual energy x-ray absorptiometry (DXA) was performed on a [email or web address] System. Regions measur ed are the AP Spine, femoral neck, and if needed forearm. COMPARISON: DEXA 05/10/2019. FINDINGS: Lumbar Spine: Bone Mineral Density 1.044 g/cm/cm,T score -1.4, osteopenia Left Hip: Bone Mineral Density 0.857 g/cm/cm,T score -2.5, osteopenia. Bone mineral density has decreased by a pproximately 5% compared to the DEXA from 05/10/2019. Left Femoral Neck: Bone Mineral Density 0.690 g/cm/cm, T score -2.5, osteoporosis (T score greater or equal to -1.0: NORMAL) (T score from -1.1 to -2.4: OSTEOPENIA) (T score less than or equal to -2.5 to: OSTEOPOROSIS) Impression: Decreased bone mineral density within the osteoporotic range at the left femoral neck. Findings have mildly progressed when compared to the exam from 05/10/2019. Patients with diagnosis of osteoporosis or osteopenia should have regular bone mineral density assess ment. For those eligible for Medicare, routine testing is allowed once every 2 years. Testing frequ ency can be increased for patients who have rapidly progressing disease or for those who are receivin g medical therapy to restore bone mass. Reviewed by: Mathew Clark MD on 08/10/2021 3:39 PM PDT Approved by: Mathew Clark MD on 08/10/2021 3:39 PM PDT Station ID: [id number]
== END 2021-08-10 12:42 | disposition home or self-care (01) ==
LOC: DI 12:41
PROVIDERS: ATTEND Physician Assistant Medical
DX: M81.0 Age-related osteoporosis without current pathological fracture (principal); Z78.0 Asymptomatic menopausal state

== ENCOUNTER 2021-09-07 11:20 | Outpatient (CLI) | payer MEDICARE ==
--- NOTE | 2021-09-08 08:11 | Mammography Report ---
BILATERAL DIGITAL SCREENING MAMMOGRAM 3D/2D: 09/07/2021 CLINICAL: Routine screening. Comparison is made to exams dated: 06/08/2020 mammogram, 12/20/2018 mammogram, 07/27/2017 mammogram, mammogram, 05/19/2015 mammogram, and 04/03/2014 mammogram - [facility]. There are scattered fibroglandular elements in both breasts. No significant masses, calcifications, or other findings are seen in either breast. There has been no significant interval change. IMPRESSION: NEGATIVE There is no mammographic evidence of malignancy. A 1 year screening mammogram is recommended. Based on the Tyrer Cuzick model (a risk assessment model) the patients lifetime risk is 1.8% and her 10 year risk is 0.0%. According to the ACR, ACS, and NCCN guidelines, an annual breast MRI exam micheline g with mammogram is recommended if the patients lifetime risk is 20% or greater. This exam was interpreted at Station ID: [id number]. NOTE: For mammograms, a report in lay terms will be sent to the patient. Approximately 15% of breast malignancies will not be visualized mammographically. In the management of a palpable breast mass, a negative mammogram must not discourage biopsy of a clinically suspicious lesion. Electronically Signed By: Rehan smith/neal:09/07/2021 13:02:02 ACR BI-RADS Category 1: Negative 3341F PARENCHYMAL PATTERN: (A) - The breast(s) demonstrate(s) scattered fibroglandular densities. BI-RADS CATEGORY: (1) - 1 RECOMMENDATION: (ANNUAL) - Recommend routine annual screening mammography. [id number] 1 year screening LATERALITY: (B)
== END 2021-09-07 11:21 | disposition home or self-care (01) ==
LOC: DI 11:20
DX: Z12.31 Encounter for screening mammogram for malignant neoplasm of breast (principal)

== ENCOUNTER 2022-07-13 10:23 | Outpatient (CLI) | payer MEDICARE ==
[2022-07-13 11:46] LABS: BASOPHILS % (AUTO) 0.9 %; EOSINOPHILS % (AUTO) 0.6 %; HCT - HEMATOCRIT 38.1 % (37.0-47.0); HGB - HEMOGLOBIN 13.1 g/dL (12.0-16.0); LYMPHOCYTES % (AUTO) 28.9 %; MEAN CORPUSCULAR HEMOGLOBIN 30.9 pg (27.0-31.0); MEAN CORPUSCULAR HGB CONC 34.4 g/dL (32.0-36.0); MEAN CORPUSCULAR VOLUME 89.9 fL (81.0-99.0); MEAN PLATELET VOLUME 10.2 fL (7.9-10.8); MONOCYTES # (AUTO) 0.3 10^3/uL (0.0-1.0); NEUTROPHILS % (AUTO) 59.3 %; PLT - PLATELET COUNT 217 10^3/uL (130-450); RED BLOOD COUNT 4.24 10^6/uL (4.20-5.40); RED CELL DISTRIBUTION WIDTH 12.5 % (12.0-15.0); WHITE BLOOD COUNT 3.3 x10^3/uL (4.8-10.8)
[2022-07-13 12:31] LABS: ALBUMIN 4.2 g/dL (3.2-5.5); ALBUMIN/GLOBULIN RATIO 1.8 (1.0-2.2); ALKALINE PHOSPHATASE 60 IU/L (42-121); ALT ALANINE AMINOTRANSFERASE 18 IU/L (10-60); AST ASPARTATE AMINOTRANSFERASE 19 IU/L (10-42); BILIRUBIN,TOTAL 0.9 mg/dL (0.2-1.0); BUN - BLOOD UREA NITROGEN 20 mg/dL (6-20); CALCIUM 9.2 mg/dL (8.5-10.3); CARBON DIOXIDE - CO2 29 mmol/L (21-32); CHLORIDE 98 mmol/L (101-111); CHOL/HDL RATIO 2.2 (<4.4); CHOLESTEROL 176 mg/dL; CREATININE 0.7 mg/dL (0.4-1.0); GFR - MDRD 81 (>89); GLUCOSE 97 mg/dL (70-100); HDL CHOLESTEROL 81 mg/dL; LDL CHOLESTEROL,CALCULATED 86 mg/dL; LDL/HDL RATIO 1.1 (<4.4); POTASSIUM 3.9 mmol/L (3.5-5.0); SODIUM 133 mmol/L (135-145); TOTAL PROTEIN 6.5 g/dL (6.7-8.2); TRIGLYCERIDES 45 mg/dL; VLDL CHOLESTEROL 9 mg/dL
[2022-07-13 12:53] LABS: THYROID STIMULATING HORMONE 1.78 uIU/mL (0.34-5.60)
[2022-07-13 17:59] LABS: ESTIMATED AVERAGE GLUCOSE 100 mg/dL (70-100); HEMOGLOBIN A1c% 5.1 % (4.27-6.07)
== END 2022-07-13 10:24 | disposition home or self-care (01) ==
LOC: LAB.N 10:23
PROVIDERS: ATTEND Physician Assistant Medical
DX: I10 Essential (primary) hypertension (principal); R73.9 Hyperglycemia, unspecified; E04.1 Nontoxic single thyroid nodule; R55 Syncope and collapse
CPT/HCPCS: 36415; 80053; 80061; 83036; 83721; 84443; 85025

== ENCOUNTER 2022-12-21 09:40 | Outpatient (CLI) | payer MEDICARE ==
--- NOTE | 2022-12-21 15:06 | CT Report ---
PROCEDURE: ABDOMEN/PELVIS WO INDICATIONS: CONSTIPATION TECHNIQUE: A CT scan of the abdomen and pelvis was performed without the use of intravenous contrast. Images we re recorded and evaluated at appropriate window settings. Reformats: coronal and sagittal. For radiat ion dose reduction, the following was used: automated exposure control, adjustment of mA and/or kV ac cording to patient size. COMPARISON: None. FINDINGS: Image quality: Excellent. Lung bases and heart: Calcified granuloma, right lung base. Otherwise unremarkable. Liver: Multiple tiny calcifications are consistent with calcified granulomata. There is a benign-appe aring calcified lesion of the left lobe liver measuring 1.6 cm. No suspicious density lesions. Gallbladder and biliary tree: No radiopaque stones or wall thickening. No biliary dilation. Spleen: No splenomegaly. Calcified splenic granulomata. Pancreas: No pancreatic ductal dilation. Adrenals: No adrenal nodule. Kidneys and ureters: No hydronephrosis. No renal cystic lesion which requires follow up. No solid mas s. Bosniak cyst, right kidney, 2.2 cm, with thin wall calcifications. Bowel and peritoneum: No bowel distension. No pathologic free fluid. Moderately large fecal debris. Lymph nodes: No central or retroperitoneal adenopathy. Vessels: No infrarenal aortic aneurysm. PELVIS Reproductive organs: Unremarkable. Bladder: No wall thickness, accounting for underdistention. Pelvic lymph nodes: No pelvic adenopathy by size criteria. Bones: No aggressive osseous abnormality. Other: Small fat-containing ventral wall hernia. No inguinal adenopathy. IMPRESSION: 1. Moderately large fecal load. 2. No acute abdominal process 3. Chronic granulomatous disease. Reviewed by: Harrison Sofia MD on 12/21/2022 3:05 PM PDT Approved by: Harrison Sofia MD on 12/21/2022 3:05 PM PDT Station ID: [id number]
== END 2022-12-21 09:41 | disposition home or self-care (01) ==
LOC: DI 09:40
PROVIDERS: ATTEND Physician Assistant Medical
DX: K59.00 Constipation, unspecified (principal)

== ENCOUNTER 2022-12-21 10:00 | Outpatient (CLI) | payer MEDICARE ==
--- NOTE | 2022-12-21 12:38 | Mammography Report ---
UNILATERAL LEFT DIGITAL DIAGNOSTIC MAMMOGRAM 3D/2D: 12/21/2022 CLINICAL: Patient returns today to evaluate an asymmetry in the left breast. Comparison is made to exams dated: 11/22/2022 mammogram, 09/07/2021 mammogram, 06/08/2020 mammogram, an d 12/20/2018 mammogram - [facility]. There are scattered areas of fibroglandular density in the left breast (category b / 25%-50% glandula r tissue). The previously described possible developing irregular equal density asymmetry in the left breast mid dle depth superior region seen on the mediolateral oblique view only is not confirmed in additional v iews. It appears less prominent. No other significant masses or calcifications are seen in the breast. IMPRESSION: INCOMPLETE: NEEDS ADDITIONAL IMAGING EVALUATION The possible developing irregular equal density asymmetry in the left breast is indeterminate. An u ltrasound is recommended for further evaluation and is scheduled to immediately follow this examinati on. Based on the Tyrer Cuzick model (a risk assessment model) the patients lifetime risk is 1.5% and her 10 year risk is 0.0%. According to the ACR, ACS, and NCCN guidelines, an annual breast MRI exam micheline g with mammogram is recommended if the patients lifetime risk is 20% or greater. This exam was interpreted at Station ID: [id number]. NOTE: For mammograms, a report in lay terms will be sent to the patient. Approximately 15% of breast malignancies will not be visualized mammographically. In the management of a palpable breast mass, a negative mammogram must not discourage biopsy of a clinically suspicious lesion. Electronically Signed By: Rehan Cunha M.D. aty/:12/21/2022 10:41:37 ACR BI-RADS Category 0: Incomplete 3340F PARENCHYMAL PATTERN: (A) - The breast(s) demonstrate(s) scattered fibroglandular densities. BI-RADS CATEGORY: (0) - 0 Ultrasound [id number] Immediate follow-up LATERALITY: (L)
--- NOTE | 2022-12-22 10:10 | Ultrasound Report ---
LIMITED ULTRASOUND OF LEFT BREAST: 12/21/2022 CLINICAL: Patient returns today to evaluate a focal asymmetry in the left breast. Comparison is made to exams dated: 12/21/2022 mammogram, 11/22/2022 mammogram, 09/07/2021 mammogram, ultrasound, 06/08/2020 mammogram, and 12/20/2018 mammogram - [facility]. Color flow and real-time ultrasound of the left breast 11-1 o'clock region were performed. Zepeda sca le images of the real-time examination were reviewed. No sonographic abnormalities were seen in the left breast. IMPRESSION: NEGATIVE There is no sonographic evidence of malignancy. There is no abnormality seen in the left breast to correspond with the mammography finding which like ly represents normal fibroglandular tissue. A 1 year screening mammogram is recommended. Findings and recommendations were conveyed to the patient during today's evaluation. This exam was interpreted at Station ID: [id number]. Electronically Signed By: Rehan Cunha M.D. aty/:12/21/2022 13:25:54 Ultrasound BI-RADS: 1 Negative BI-RADS CATEGORY: (1) - 1 Mammogram [id number] 1 year screening LATERALITY: (B)
== END 2022-12-21 23:59 | disposition home or self-care (01) ==
LOC: DI 10:00
PROVIDERS: ATTEND Physician Assistant Medical
DX: R92.8 Other abnormal and inconclusive findings on diagnostic imaging of breast (principal); R92.322 Mammographic fibroglandular density, left breast

== ENCOUNTER 2023-01-05 10:18 | Outpatient (CLI) | payer MEDICARE ==
[2023-01-05 10:43] LABS: BILIRUBIN,URINE NEGATIVE (NEGATIVE); GLUCOSE, URINE (UA) NEGATIVE (NEGATIVE); KETONES,URINE (UA) TRACE mg/dL (NEGATIVE); LEUKOCYTE ESTERASE, URINE TRACE (NEGATIVE); NITRITE,URINE NEGATIVE (NEGATIVE); OCCULT BLOOD,URINE NEGATIVE (NEGATIVE); PH,URINE 5.5 PH (5.0-7.5); PROTEIN,URINE NEGATIVE (NEGATIVE); UROBILINOGEN,URINE 0.2 (NORMAL) E.U./dL (NORMAL)
[2023-01-05 10:48] LABS: BASOPHILS # (AUTO) 0.1 10^3/uL (0.0-0.1); BASOPHILS % (AUTO) 1.1 %; EOSINOPHILS # (AUTO) 0.1 10^3/uL (0.0-0.7); EOSINOPHILS % (AUTO) 2.6 %; HCT - HEMATOCRIT 39.5 % (37.0-47.0); HGB - HEMOGLOBIN 13.3 g/dL (12.0-16.0); LYMPHOCYTES % (AUTO) 22.1 %; MEAN CORPUSCULAR HEMOGLOBIN 30.9 pg (27.0-31.0); MEAN CORPUSCULAR HGB CONC 33.7 g/dL (32.0-36.0); MEAN CORPUSCULAR VOLUME 91.6 fL (81.0-99.0); MEAN PLATELET VOLUME 9.3 fL (7.9-10.8); MONOCYTES # (AUTO) 0.4 10^3/uL (0.0-1.0); MONOCYTES % (AUTO) 9.2 %; NEUTROPHILS % (AUTO) 64.8 %; PLT - PLATELET COUNT 281 10^3/uL (130-450); RED BLOOD COUNT 4.31 10^6/uL (4.20-5.40); RED CELL DISTRIBUTION WIDTH 12.1 % (12.0-15.0); WHITE BLOOD COUNT 4.7 x10^3/uL (4.8-10.8)
[2023-01-05 10:55] LABS: ALBUMIN 4.8 g/dL (3.2-5.5); ALBUMIN/GLOBULIN RATIO 1.8 (1.0-2.2); ALKALINE PHOSPHATASE 73 IU/L (42-121); ALT ALANINE AMINOTRANSFERASE 14 IU/L (10-60); AST ASPARTATE AMINOTRANSFERASE 18 IU/L (10-42); BILIRUBIN,TOTAL 0.8 mg/dL (0.2-1.0); BUN - BLOOD UREA NITROGEN 16 mg/dL (6-20); CALCIUM 9.8 mg/dL (8.5-10.3); CARBON DIOXIDE - CO2 29 mmol/L (21-32); CHLORIDE 97 mmol/L (101-111); CHOLESTEROL 185 mg/dL; CREATININE 0.7 mg/dL (0.6-1.3); GFR - MDRD 81 (>89); GLUCOSE 98 mg/dL (74-104); HDL CHOLESTEROL 91 mg/dL; LDL CHOLESTEROL,CALCULATED 83 mg/dL; LDL/HDL RATIO 0.9 (<4.4); POTASSIUM 4.4 mmol/L (3.5-4.5); SODIUM 132 mmol/L (135-145); TOTAL PROTEIN 7.4 g/dL (6.4-8.9); TRIGLYCERIDES 54 mg/dL (48-352); VLDL CHOLESTEROL 11 mg/dL
[2023-01-05 11:00] LABS: BACTERIA,URINE Few /HPF (None Seen); CLARITY,URINE HAZY (CLEAR); RBC,URINE None Seen /HPF (0-5); SQUAMOUS EPITHELIAL CELL,UR FEW Squamous (<= Few); WBC,URINE 0-3 /HPF (0-5)
[2023-01-05 11:01] LABS: CRYSTALS,URINE 0-2 Calcium Oxalate /LPF
== END 2023-01-05 10:19 | disposition home or self-care (01) ==
LOC: LAB 10:18
PROVIDERS: ATTEND Physician Assistant Medical
DX: R73.9 Hyperglycemia, unspecified (principal); I10 Essential (primary) hypertension; R35.0 Frequency of micturition
CPT/HCPCS: 36415; 80053; 80061; 81001; 83721; 85025; 87086

== ENCOUNTER 2023-07-03 10:43 | Outpatient (CLI) | payer MEDICARE ==
[2023-07-03 11:13] LABS: ALBUMIN 4.6 g/dL (3.2-5.5); ALBUMIN/GLOBULIN RATIO 2.1 (1.0-2.2); BILIRUBIN,TOTAL 0.8 mg/dL (0.2-1.0); CREATININE 0.7 mg/dL (0.6-1.3); POTASSIUM 4.3 mmol/L (3.5-4.5); TOTAL PROTEIN 6.8 g/dL (6.4-8.9)
[2023-07-03 11:29] LABS: THYROID STIMULATING HORMONE 1.99 uIU/mL (0.34-5.60)
== END 2023-07-03 10:44 | disposition home or self-care (01) ==
LOC: LAB 10:43
PROVIDERS: ATTEND Physician Assistant Medical
DX: E04.1 Nontoxic single thyroid nodule (principal); R73.9 Hyperglycemia, unspecified
CPT/HCPCS: 36415; 80053; 84439; 84443; 84481

== ENCOUNTER 2023-08-08 12:54 | Outpatient (CLI) | payer MEDICARE ==
--- NOTE | 2023-08-09 10:46 | DEXA Report ---
PROCEDURE: Dexa Spine and/or Hip INDICATIONS: POST MENOPAUSAL TECHNIQUE: Dual energy x-ray absorptiometry (DXA) was performed on a [employer] System. Regions measur ed are the AP Spine, femoral neck, and if needed forearm. COMPARISON: 08/10/2021, 05/10/2019 FINDINGS: Lumbar Spine: Bone Mineral Density: 1.017 g/cm/cm,T score: -1.4. There has been no statistically significant ocmapo e in bone mineral density since the prior study. Left Femoral Neck: Bone Mineral Density: 0.619 g/cm/cm, T score: -3. Left Hip: Bone Mineral Density: 0.764 g/cm/cm,T score: -1.9. Since the most recent prior study, there has been a statistically significant decrease in bone mineral density 10.9 percent. (T score greater or equal to -1.0: NORMAL) (T score from -1.1 to -2.4: OSTEOPENIA) (T score less than or equal to -2.5 to: OSTEOPOROSIS) Impression: By WHO criteria, this patient has osteoporosis. No statistical interval change in bone mineral density of the lumbar spine. Interval statistical decr ease in bone mineral density of the hip. Patients with diagnosis of osteoporosis or osteopenia should have regular bone mineral density assess ment. For those eligible for Medicare, routine testing is allowed once every 2 years. Testing frequ ency can be increased for patients who have rapidly progressing disease or for those who are receivin g medical therapy to restore bone mass. Reviewed by: Moisés Chavez MD on 08/09/2023 10:44 AM PDT Approved by: Moisés Chavez MD on 08/09/2023 10:44 AM PDT Station ID: [id number]
== END 2023-08-08 12:55 | disposition home or self-care (01) ==
LOC: DI 12:54
PROVIDERS: ATTEND Physician Assistant Medical
DX: M81.0 Age-related osteoporosis without current pathological fracture (principal); Z78.0 Asymptomatic menopausal state

== ENCOUNTER 2023-09-06 13:55 | Outpatient (CLI) | payer MEDICARE ==
[2023-09-06 14:11] LABS: BASOPHILS % (AUTO) 0.5 %; HCT - HEMATOCRIT 35.6 % (37.0-47.0); HGB - HEMOGLOBIN 11.9 g/dL (12.0-16.0); LYMPHOCYTES # (AUTO) 0.9 10^3/uL (1.5-3.5); LYMPHOCYTES % (AUTO) 16.5 %; MEAN CORPUSCULAR HEMOGLOBIN 31.1 pg (27.0-31.0); MEAN CORPUSCULAR HGB CONC 33.4 g/dL (32.0-36.0); MEAN PLATELET VOLUME 9.3 fL (7.9-10.8); MONOCYTES # (AUTO) 0.3 10^3/uL (0.0-1.0); MONOCYTES % (AUTO) 5.8 %; NEUTROPHILS # (AUTO) 4.2 10^3/uL (1.5-6.6); NEUTROPHILS % (AUTO) 77.2 %; PLT - PLATELET COUNT 257 10^3/uL (130-450); RED BLOOD COUNT 3.83 10^6/uL (4.20-5.40); RED CELL DISTRIBUTION WIDTH 12.2 % (12.0-15.0); WHITE BLOOD COUNT 5.5 x10^3/uL (4.8-10.8)
[2023-09-06 14:28] LABS: ALBUMIN 4.5 g/dL (3.2-5.5); ALBUMIN/GLOBULIN RATIO 1.7 (1.0-2.2); BILIRUBIN,TOTAL 0.5 mg/dL (0.2-1.0); CALCIUM 9.7 mg/dL (8.5-10.3); CREATININE 0.7 mg/dL (0.6-1.3); POTASSIUM 4.1 mmol/L (3.5-4.5); TOTAL PROTEIN 7.1 g/dL (6.4-8.9)
[2023-09-06 14:45] LABS: THYROID STIMULATING HORMONE 1.24 uIU/mL (0.34-5.60)
[2023-09-06 14:51] LABS: FERRITIN 28.8 ng/mL (11.0-306.8)
== END 2023-09-06 13:56 | disposition home or self-care (01) ==
LOC: LAB 13:55
PROVIDERS: ATTEND Physician Assistant Medical
DX: R55 Syncope and collapse (principal)
CPT/HCPCS: 36415; 80053; 82728; 83735; 84439; 84443; 84481; 85025